=== PATIENT | male | born 1990 | race Caucasian/White ===

== ENCOUNTER → 2022-05-19 15:41 | Outpatient (BNVA) | payer SELFPAY | PROVIDERS: PCP Nurse Practitioner Family; Visit Provider Nurse Practitioner Family | DX: S82.892A Other fracture of left lower leg, initial encounter for closed fracture (principal); X58.XXXA Exposure to other specified factors, initial encounter | CPT/HCPCS: 73610 ==

== ENCOUNTER → 2023-07-12 14:34 | Outpatient (BNVA) | payer OTHER, SELFPAY | PROVIDERS: PCP Nurse Practitioner Family; Visit Provider Nurse Practitioner Family | DX: J34.0 Abscess, furuncle and carbuncle of nose (principal) | CPT/HCPCS: 85025; 87070; 87077; 87184 ==

== ENCOUNTER 2024-08-03 10:47 | Outpatient (CLI) | payer OTHER, SELFPAY ==
--- NOTE | 2024-08-03 10:55 | XR_ITS ---
WS: [id number] Exam: XR hip RT 2-3V wo/w pel* [id number] Date/Time of Exam: 08/03/2024 10:56 AM Reason For Exam: Hip pain, right Comparison 01/28/2010. Again noted are bony changes in the head and neck of the femur suggesting Perthes disease. There is deformity of the RIGHT acetabulum. No fracture noted. Metallic plate and multiple screws positioned in the upper femur unchanged in appearance. XR/XR hip RT 2-3V wo/w pel* [id number] IMPRESSION: 1. 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 No change since previo us study.
== END 2024-08-03 10:48 | disposition home or self-care (01) ==
LOC: RAD 10:50
PROVIDERS: PCP Nurse Practitioner Family; Visit Provider Nurse Practitioner Family
DX: M25.551 Pain in right hip (principal); R93.7 Abnormal findings on diagnostic imaging of other parts of musculoskeletal system
CPT/HCPCS: 73502

== ENCOUNTER → 2024-11-12 14:31 | Outpatient (BNVA) | payer OTHER, SELFPAY | PROVIDERS: PCP Nurse Practitioner Family; Visit Provider Nurse Practitioner | DX: M25.551 Pain in right hip (principal); M91.11 Juvenile osteochondrosis of head of femur [Legg-Calve-Perthes], right leg | CPT/HCPCS: 73502 ==

== ENCOUNTER → 2024-11-23 12:26 | Outpatient (BNVA) | payer OTHER, SELFPAY | PROVIDERS: PCP Nurse Practitioner Family; Visit Provider Specialist | DX: M16.11 Unilateral primary osteoarthritis, right hip (principal) | CPT/HCPCS: 77002 ==

== ENCOUNTER → 2025-03-08 10:54 | Outpatient (BNVA) | payer OTHER, SELFPAY | PROVIDERS: PCP Nurse Practitioner Family; Visit Provider Specialist | DX: Z53.9 Procedure and treatment not carried out, unspecified reason (principal) | CPT/HCPCS: 77002 ==